=== PATIENT | male | born 1990 | race American Indian/Alaskan Native ===

== ENCOUNTER 2016-11-05 20:17 | Emergency (ER) | payer OTHER ==
[2016-11-05 20:54] VITALS: BP 146/92
[2016-11-05] MEDS ORDERED: XYLOCAINE 2% INFILTRATI ONE ×2 (21:43→21:44)
--- NOTE | 2016-11-05 21:57 | Emergency Department Report ---
- General Chief complaint: Skin/Abscess/Foreign Body Stated complaint: JAW PAIN Source: patient, family Mode of arrival: Ambulatory Limitations: No Limitations - History of Present Illness Initial comments: Patient states this is exactly like prior ingrown hairs that he has had on his face and had have cut open MD complaint: abscess/boil -: Gradual Location: face Severity scale (0 -10): 6 Quality: aching Consistency: constant Improves with: none Worsens with: movement Associated symptoms: denies other symptoms Treatments Prior to Arrival: attempted to drain pus at - Related Data Previous Rx's Medication Instructions Recorded Last Taken Type Sulfamethoxazole/Trimethoprim 1 each PO BID #20 tablet 11/05/16 Unknown Rx [Bactrim DS TAB] traMADol [Ultram 50 MG tab] 50 mg PO Q4HR PRN #15 tablet 11/05/16 Unknown Rx Allergies Allergy/AdvReac Type Severity Reaction Status Date / Time No Known Allergies Allergy Unverified 11/05/16 20:54 Abscess Boil HPI - HPI Chief Complaint: Skin/Abscess/Foreign Body Stated Complaint: JAW PAIN Duration: 3 Days Severity: Moderate History: Yes Pain, No Fever, No Purulent Drainage, No Numbness, No Foreign Body , No Previous History, No Insect Bite Home Medications: Previous Rx's Medication Instructions Recorded Last Taken Type Sulfamethoxazole/Trimethoprim 1 each PO BID #20 tablet 11/05/16 Unknown Rx [Bactrim DS TAB] traMADol [Ultram 50 MG tab] 50 mg PO Q4HR PRN #15 tablet 11/05/16 Unknown Rx Allergies/Adverse Reactions: Allergies Allergy/AdvReac Type Severity Reaction Status Date / Time No Known Allergies Allergy Unverified 11/05/16 20:54 ED Review of Systems ROS: Stated complaint: JAW PAIN Other details as noted in HPI Constitutional: denies: chills, fever Eyes: denies: eye pain, eye discharge, vision change ENT: denies: ear pain, throat pain Respiratory: denies: cough, shortness of breath, wheezing Cardiovascular: denies: chest pain, palpitations Endocrine: no symptoms reported Gastrointestinal: denies: abdominal pain, nausea, vomiting, diarrhea Genitourinary: denies: urgency, dysuria Musculoskeletal: denies: back pain, joint swelling, arthralgia Skin: other (swelling and tenderness of right jaw.). denies: rash, lesions Neurological: denies: headache, weakness, paresthesias Psychiatric: denies: anxiety, depression Hematological/Lymphatic: denies: easy bleeding, easy bruising ED Past Medical Hx - Past Medical History Hx Asthma: Yes - Surgical History Past Surgical History?: No - Social History Smoking Status: Current Some Day Smoker Substance Use Type: None - Medications Home Medications: Home Medications Medication Instructions Recorded Confirmed Last Taken Type Sulfamethoxazole/Trimethoprim 1 each PO BID #20 tablet 11/05/16 Unknown Rx [Bactrim DS TAB] traMADol [Ultram 50 MG tab] 50 mg PO Q4HR PRN #15 tablet 11/05/16 Unknown Rx ED Physical Exam - General Limitations: No Limitations General appearance: alert, in no apparent distress - Head Head exam: Present: atraumatic, normocephalic - Eye Eye exam: Present: normal appearance, PERRL, EOMI - ENT ENT exam: Present: mucous membranes moist - Neck Neck exam: Present: normal inspection - Respiratory Respiratory exam: Present: normal lung sounds bilaterally. Absent: respiratory distress - Cardiovascular Cardiovascular Exam: Present: regular rate - Back Exam Back exam: Present: normal inspection - Neurological Exam Neurological exam: Present: alert, oriented X3 - Psychiatric Psychiatric exam: Present: normal affect, normal mood - Skin Skin exam: Present: other (obvious containing his abscess of right maxilla consistent with ingrown hair. No lymphangitis lymphadenopathy noted.) ED Course Vital Signs 11/05/16 20:49 Temperature 98.9 F Pulse Rate 92 H Respiratory 16 Rate Blood Pressure 146/92 Blood Pressure 146/92 [Left] O2 Sat by Pulse 100 Oximetry - I & D Jaw Type of Procedure: Simple Blade Size: 11 I & D Procedure: betadine prep, sterile drapes applied, sterile dressing applied , gauze wick placed Critical care attestation.: If time is entered above; I have spent that time in minutes in the direct care of this critically ill patient, excluding procedure time. ED Disposition Clinical Impression: Cutaneous abscess of face Disposition: - TO HOME OR SELFCARE Is pt being admited?: No Condition: Stable Instructions: Abscess Incision and Drainage (ED), Abscess (ED) Prescriptions: Sulfamethoxazole/Trimethoprim [Bactrim DS TAB] 1 each PO BID #20 tablet traMADol [Ultram 50 MG tab] 50 mg PO Q4HR PRN #15 tablet PRN Reason: Pain Referrals: PRIMARY CARE, [Primary Care Provider] - 3-5 Days TRANG CARDONA MD [Staff Physician] - 3-5 Days
== END 2016-11-05 22:30 | disposition home or self-care (01) ==
LOC: ED 20:17
DX: L02.01 Cutaneous abscess of face (principal); J45.909 Unspecified asthma, uncomplicated; F17.200 Nicotine dependence, unspecified, uncomplicated